=== PATIENT | female | born 1945 | race Caucasian/White ===

== ENCOUNTER → 2022-01-08 | Day surgery (SDC) | payer OTHER ==
[~2022-01-08] VITALS: Ht 167.6 cm; Wt 72.6 kg
[~2022-01-08] MED LIST: CELEXA40 MG PO; LEVOTHYROXINE50 MCG PO; PERCOCET 5-3251 EACH PO; RESTORIL15 MG PO; ROPINIROLE HC0.25 MG PO; ZOCOR40 MG PO; [UNRECOGNIZED DRUG - OTHER] TOP
[2022-01-08 07:09] LABS: BUN/CREATININE RATIO 23 (0-10)
== END | disposition home or self-care (01) ==
LOC: OR 06:08
PROVIDERS: Orthopaedic Surgery
DX: S52.571A Other intraarticular fracture of lower end of right radius, initial encounter for closed fracture (principal); S52.611A Displaced fracture of right ulna styloid process, initial encounter for closed fracture; W01.0XXA Fall on same level from slipping, tripping and stumbling without subsequent striking against object, initial encounter; Y93.89 Activity, other specified; E78.5 Hyperlipidemia, unspecified; E03.9 Hypothyroidism, unspecified; G25.81 Restless legs syndrome; R42 Dizziness and giddiness; H93.19 Tinnitus, unspecified ear; F41.9 Anxiety disorder, unspecified; F32.A Depression, unspecified; Z88.0 Allergy status to penicillin; Z88.1 Allergy status to other antibiotic agents; Z79.899 Other long term (current) drug therapy
CPT/HCPCS: 36415; 73110; 76000; 80048; 93005; C1713; J0171; J0690; J2250; J2704; J2795; J7120